=== PATIENT | male | born 1935 | race Caucasian/White ===

== ENCOUNTER 2017-06-14 07:57 | Observation (INO) | payer OTHER ==
[2017-06-14 09:04] LABS: Absolute Lymphocytes (CBC) 2.2 K/uL (0.7-4.9); Absolute Monocytes 1.3 K/uL (0.1-1.3); Absolute Neutrophil 4.4 K/uL (1.8-8.0); Basophils % 0.8 % (0-1.3); Eosinophils % 0.8 % (0-4.4); Hematocrit 40.9 % (39.6-49.0); Lymphocytes % 28.1 % (15.3-44.8); MCH 33.2 pg (27.0-35.0); MCV 102.2 fL (80-100); MPV 9.5 fL (7.6-11.3); Monocytes % 15.7 % (3.3-12.3); Potassium 4.2 mEq/L (3.6-5.0)
[2017-06-14 09:08] LABS: Protime INR 1.06
[2017-06-14 09:10] LABS: Albumin 3.5 g/dL (3.2-5.5); Bilirubin Direct 0.1 mg/dL (0-0.2); Bilirubin Total 0.6 mg/dL (0.3-1.2); Magnesium 1.7 mg/dL (1.8-2.5); Protein, Total 7.3 g/dL (6.0-8.3)
[2017-06-14 09:14] LABS: CKMB Creatine Kinase MB 2.1 ng/ml (0.3-4.0)
--- NOTE | 2017-06-14 09:45 | RAD REPORT ---
EXAM DESCRIPTION: RAD - Chest Single View - 06/14/2017 8:43 am CLINICAL HISTORY: Cough and congestion, recent flu diagnosis COMPARISON: Chest film 2011 TECHNIQUE: AP portable chest image was obtained 0838 hours . FINDINGS: No peripheral mass or consolidation. Perihilar markings are minimally increased over the p rior study. Fullness of the left hilum is diminished slightly from the prior study. Heart and vascula ture are normal. No measurable pleural effusion and no pneumothorax. No gross bony abnormality seen. No acute aortic findings suspected. IMPRESSION: No peripheral mass or consolidation. Slight increase in interstitial markings from comparison. This could be progressive fibrotic change o r a minimal infiltrate.
[2017-06-14] MEDS ORDERED: IPRATROPIUM BROM 0.5MG/2.5ML ONE (10:10)
[2017-06-14] MEDS ORDERED: MAGNESIUM SULFATE 1 gm IVPB 1 GM/100 ML BAG IV ONE (10:10)
[2017-06-14] MEDS ORDERED: ALBUTEROL 2.5 MG/3 ML NEB SOL ONE (10:10)
[2017-06-14] MEDS ORDERED: ASPIRIN 325 MG TAB ONE (11:08)
[2017-06-14] MEDS ORDERED: predniSONE 20 MG TAB ONE (11:08)
[2017-06-14] MEDS ORDERED: IPRATROPIUM BROM 0.5MG/2.5ML NEB PRN (11:12)
[2017-06-14] MEDS ORDERED: ACETAMINOPHEN 500 MG TAB PO PRN (11:12)
[2017-06-14] MEDS ORDERED: ONDANSETRON 4 MG/2 ML VIAL IV PRN (11:12)
[2017-06-14] MEDS ORDERED: ALBUTEROL 2.5 MG/3 ML NEB SOL NEB PRN (11:12)
--- NOTE | 2017-06-14 11:15 | EDPHYS ---
Physician Documentation [facility] Name: Conner Holder Age: 81 yrs Sex: Male : 1935 Arrival Date: 06/14/2017 Time: 08:00 Bed 5 Private MD: Olamide Grossman C ED Physician Kurt Queen HPI: 06/14 11:00 This 81 yrs old Male presents to ER via Ambulatory with complaints of Cough, pm1 Breathing Difficulty. 11:00 The patient or guardian reports cough, difficulty breathing. Onset: The pm1 symptoms/episode began/occurred 2 week(s) ago. Severity of symptoms: in the emergency department the symptoms are actually worse. Modifying factors: The symptoms are alleviated by nothing, the symptoms are aggravated by exertion. Associated signs and symptoms: Pertinent negatives: chest pain, diarrhea, fever, nausea, rhinorrhea, sore throat, vomiting. 11:00 Patient with cough and shortness of breath with exertion for the past 2 weeks. He was pm1 seen by his PCP 1 week ago and prescribed Z-Otoniel for bronchitis. Patient did not improve with the antibiotics, increased shortness of breath with exertion and coughing, so he presented to [facility] and was diagnosed with flu pneumonia. Patient prescribed Cipro, Tamiflu, albuterol, and Tessalon Perles. Patient has taken one pill of Cipro. Has not taken any Tamiflu. Patient with last episode of fever about 1 week ago.. Historical: - Allergies: 08:25 PENICILLINS; ss - PMHx: 08:25 Arthritis; Kidney stones; AAA; ss - PSHx: 08:25 Carpal Tunnel Repair; Eye Surgery (X2); prostate surgery (Dr Chavez) 2011; back ss surgery; knee replacement; - Immunization history:: Adult Immunizations up to date. - Social history:: Smoking status: Patient/guardian denies using tobacco. ROS: 11:00 Constitutional: Negative for fever, chills, and weight loss, Eyes: Negative for injury, pm1 pain, redness, and discharge, ENT: Negative for injury, pain, and discharge, Neck: Negative for injury, pain, and swelling. 11:00 Abdomen/GI: Negative for abdominal pain, nausea, vomiting, diarrhea, and constipation, Back: Negative for injury and pain, : Negative for injury, bleeding, discharge, and swelling, MS/Extremity: Negative for injury and deformity, Skin: Negative for injury, rash, and discoloration, Neuro: Negative for headache, weakness, numbness, tingling, and seizure. 11:00 Cardiovascular: Positive for chest pain, with cough, Negative for edema, palpitations. 11:00 Respiratory: Positive for cough, shortness of breath, on exertion. Sputum cream colored, Negative for wheezing. Exam: 11:00 Constitutional: This is a well developed, well nourished patient who is awake, alert, pm1 and in no acute distress. Head/Face: Normocephalic, atraumatic. Eyes: Pupils equal round and reactive to light, extra-ocular motions intact. Lids and lashes normal. Conjunctiva and sclera are non-icteric and not injected. Cornea within normal limits. Periorbital areas with no swelling, redness, or edema. ENT: Nares patent. No nasal discharge, no septal abnormalities noted. Tympanic membranes are normal and external auditory canals are clear. Oropharynx with no redness, swelling, or masses, exudates, or evidence of obstruction, uvula midline. Mucous membranes moist. Neck: Trachea midline, no thyromegaly or masses palpated, and no cervical lymphadenopathy. Supple, full range of motion without nuchal rigidity, or vertebral point tenderness. No Meningismus. 11:00 Cardiovascular: Regular rate and rhythm with a normal S1 and S2. No gallops, murmurs, or rubs. No pulse deficits. Abdomen/GI: Soft, non-tender, with normal bowel sounds. No distension or tympany. No guarding or rebound. No evidence of tenderness throughout. Back: No spinal tenderness. No costovertebral tenderness. Full range of motion. Skin: Warm, dry with normal turgor. Normal color with no rashes, no lesions, and no evidence of cellulitis. MS/ Extremity: Pulses equal, no cyanosis. Neurovascular intact. Full, normal range of motion. 11:00 Chest/axilla: Inspection: normal, Palpation: is normal, crepitus, is not appreciated, tenderness, is not appreciated. 11:00 Respiratory: the patient does not display signs of respiratory distress, Respirations: normal, Breath sounds: rhonchi, are heard diffusely. 11:00 Neuro: Orientation: is normal, Mentation: is normal, Motor: is normal, moves all fours, Sensation: is normal, no obvious gross deficits. Vital Signs: 08:25 BP 107 / 71; Pulse 97; Resp 20; Temp 98.3(O); Pulse Ox 93% on R/A; Weight 108.86 kg; ss Height 5 ft. 11 in. (180.34 cm); Pain 0/10; 09:59 BP 125 / 84; Pulse 94; Resp 19; Pulse Ox 100% on Nebulizer Mask; la1 10:52 Pulse 79; Resp 19; Pulse Ox 97% on 2 lpm NC; la1 10:53 BP 120 / 63; Pulse 77; Resp 19; Pulse Ox 97% on 2 lpm NC; la1 12:48 BP 120 / 66; Pulse 79; Resp 16; Pulse Ox 97% on 2 lpm NC; la1 08:25 Body Mass Index 33.47 (108.86 kg, 180.34 cm) ss MDM: 08:15 Patient medically screened. pm1 10:58 Data reviewed: vital signs. Data interpreted: Pulse oximetry: on 2L(s) per nasal pm1 canula, is 97 %. Interpretation: acceptable. Counseling: I had a detailed discussion with the patient and/or guardian regarding: the historical points, exam findings, and any diagnostic results supporting the discharge/admit diagnosis, lab results, radiology results, the need for further work-up and treatment in the hospital. 10:58 Physician consultation: Vijaya Prakash MD was contacted at 10:59, regarding admission, pm1 patient's condition, and will see patient in ED. 06/14 08:24 Order name: Basic Metabolic Panel pm1 06/14 08:24 Order name: BNP pm1 06/14 08:24 Order name: CBC with Diff pm1 06/14 08:24 Order name: Ckmb pm1 06/14 08:24 Order name: CPK; Complete Time: 09:41 pm1 06/14 08:24 Order name: LFT's; Complete Time: 09:41 pm1 06/14 08:24 Order name: Magnesium; Complete Time: 09:41 pm06/14 08:24 Order name: PT-INR; Complete Time: 09:41 pm1 06/14 08:24 Order name: Ptt, Activated; Complete Time: 09:41 pm1 06/14 08:24 Order name: Troponin (emerg Dept Use Only); Complete Time: 09:41 pm06/14 08:24 Order name: Flu; Complete Time: 09:41 pm1 06/14 08:24 Order name: Basic Metabolic Panel; Complete Time: 09:41 EDMS 06/14 08:24 Order name: BNP B-Type Natriuretic Peptide; Complete Time: 09:41 EDMS 06/14 08:24 Order name: CBC with Automated Diff; Complete Time: 09:41 EDMS 06/14 08:24 Order name: XRAY Chest (1 view); Complete Time: 09:45 pm06/14 08:24 Order name: CKMB Creatine Kinase MB; Complete Time: 09:41 EDMS 06/14 08:25 Order name: Blood Culture Adult (2) pm06/14 08:25 Order name: Procalcitonin; Complete Time: 10:43 pm06/14 08:25 Order name: Lactate; Complete Time: 09:41 pm06/14 11:15 Order name: Basic Metabolic Panel EDMS 06/14 11:15 Order name: Basic Metabolic Panel EDMS 06/14 11:15 Order name: Basic Metabolic Panel EDMS 06/14 11:15 Order name: Basic Metabolic Panel EDMS 06/14 11:15 Order name: CBC with Automated Diff EDMS 06/14 11:15 Order name: CBC with Automated Diff EDMS 06/14 11:15 Order name: CBC with Automated Diff EDMS 06/14 11:15 Order name: CBC with Automated Diff EDMS 06/14 08:24 Order name: EKG; Complete Time: 08:25 pm06/14 08:24 Order name: Cardiac monitoring; Complete Time: 08:35 pm06/14 08:24 Order name: EKG - Nurse/Tech; Complete Time: 08:35 pm06/14 08:24 Order name: IV Saline Lock; Complete Time: 08:36 pm06/14 08:24 Order name: Labs collected and sent; Complete Time: 08:36 pm06/14 08:24 Order name: O2 Per Protocol; Complete Time: 08:36 pm06/14 08:24 Order name: O2 Sat Monitoring; Complete Time: 08:36 pm06/14 11:15 Order name: CONS Pharmacy Consult EDMS 06/14 11:15 Order name: Heart Healthy EDMS Administered Medications: 09:59 Drug: Magnesium Sulfate 1 grams Route: IVPB; Infused Over: 1 hrs; Site: right la1 antecubital; 11:02 Follow up: IV Status: Completed infusion la1 :59 Drug: Albuterol 2.5 mg Route: Inhalation; la1 11: Follow up: Response: No adverse reaction la1 09:59 Drug: AtroVENT Aerosol 0.5 mg Route: Inhalation; la1 11: Follow up: Response: No adverse reaction la1 10:52 Drug: Aspirin 325 mg Route: PO; la1 11:05 Follow up: Response: No adverse reaction la1 10:52 Drug: predniSONE 60 mg Route: PO; la1 11:05 Follow up: Response: No adverse reaction la1 11:22 Drug: LevaQUIN 750 mg Route: PO; la1 13:11 Follow up: Response: No adverse reaction la1 11:22 Drug: Rocephin 1 grams Route: IV; Rate: calculated rate; Site: right antecubital; la1 : Follow up: IV Status: Completed infusion la1 Disposition: 15:25 Co-signature as Attending Physician, Kurt Queen MD I agree with the assessment and kdr plan of care. Disposition: 06/14/17 11:14 Hospitalization ordered by Vijaya Prakash for Observation. Preliminary diagnosis are Chronic obstructive pulmonary disease with (acute) exacerbation, Influenza due to certain identified influenza viruses - Influenza B. - Bed requested for Telemetry/MedSurg (observation). - Status is Observation. la1 - Condition is Stable. - Problem is new. - Symptoms have improved. UTI on Admission? No Signatures: Dispatcher [employer] [facility] Quynh Ocampo RN RN Kurt Queen MD MD [facility] Marissa Nickerson RN RN Praveen Condon RN RN la1 Valentino Francisco, DAT RISK ASSESSOR pm1 Corrections: (The following items were deleted from the chart) 13:11 08:24 Urine Dipstick-Ancillary ordered. pm1 la1
--- NOTE | 2017-06-14 11:15 | ER ---
Nurse's Notes [facility] Name: Conner Holder Age: 81 yrs Sex: Male : 1935 Arrival Date: 06/14/2017 Time: 08:00 Bed 5 Private MD: Olamide Grossman C Diagnosis: Influenza due to certain identified influenza viruses-Influenza B;Chronic obstructive pulmonary disease with (acute) exacerbation Presentation: 06/14 08:03 Presenting complaint: Patient states: seen at [facility] urgent care yesterday and ss diagnosed with flu and pneumonia. Pt reports that cough and shortness of breath have been going on for approx 5 days, but is worse today compared to yesterday despite new prescriptions. Transition of care: patient was not received from another setting of care. Onset of symptoms was June 10, 2017. Care prior to arrival: None. 08:03 Method Of Arrival: Ambulatory ss 08:03 Acuity: ROHIT 2 ss Triage Assessment: 11:22 General: Appears in no apparent distress. Behavior is calm, cooperative. Respiratory: la1 Onset: The symptoms/episode began/occurred. Respiratory: Reports shortness of breath cough that is the patient has mild shortness of breath. Historical: - Allergies: 08:25 PENICILLINS; ss - PMHx: 08:25 Arthritis; Kidney stones; AAA; ss - PSHx: 08:25 Carpal Tunnel Repair; Eye Surgery (X2); prostate surgery (Dr Chavez) 2011; back ss surgery; knee replacement; - Immunization history:: Adult Immunizations up to date. - Social history:: Smoking status: Patient/guardian denies using tobacco. Screenin:36 Abuse screen: Denies threats or abuse. Denies injuries from another. Nutritional hb screening: No deficits noted. Tuberculosis screening: No symptoms or risk factors identified. Fall Risk None identified. Assessment: 08:37 General: Appears in no apparent distress. Behavior is calm, cooperative. Pain:. Pain: hb Denies pain. Neuro: Level of Consciousness is awake, alert, obeys commands, Oriented to person, place, time, situation. Cardiovascular: Capillary refill < 3 seconds Patient's skin is warm and dry. Rhythm is regular. Respiratory: Airway is patent Trachea midline Respiratory effort is even, unlabored, Respiratory pattern is regular, symmetrical, Breath sounds with rhonchi. GI: No signs and/or symptoms were reported involving the gastrointestinal system. : No signs and/or symptoms were reported regarding the genitourinary system. EENT: No signs and/or symptoms were reported regarding the EENT system. Derm: No signs and/or symptoms reported regarding the dermatologic system. Skin is intact, is healthy with good turgor, Skin is pink, warm \T\ dry. Musculoskeletal: No signs and/or symptoms reported regarding the musculoskeletal system. 09:59 Reassessment: Patient appears in no apparent distress at this time. No changes from la1 previously documented assessment. Patient is alert, oriented x 3, equal unlabored respirations, skin warm/dry/pink. 11:02 Reassessment: Patient appears in no apparent distress at this time. No changes from la1 previously documented assessment. Patient and/or family updated on plan of care and expected duration. Pain level reassessed. Patient is alert, oriented x 3, equal unlabored respirations, skin warm/dry/pink. 12:49 Reassessment: Patient appears in no apparent distress at this time. No changes from la1 previously documented assessment. Patient and/or family updated on plan of care and expected duration. Pain level reassessed. Patient is alert, oriented x 3, equal unlabored respirations, skin warm/dry/pink. Vital Signs: 08:25 BP 107 / 71; Pulse 97; Resp 20; Temp 98.3(O); Pulse Ox 93% on R/A; Weight 108.86 kg; Height 5 ft. 11 in. (180.34 cm); Pain 0/10; 09:59 BP 125 / 84; Pulse 94; Resp 19; Pulse Ox 100% on Nebulizer Mask; la1 10:52 Pulse 79; Resp 19; Pulse Ox 97% on 2 lpm NC; la1 10:53 BP 120 / 63; Pulse 77; Resp 19; Pulse Ox 97% on 2 lpm NC; la1 12:48 BP 120 / 66; Pulse 79; Resp 16; Pulse Ox 97% on 2 lpm NC; la1 08:25 Body Mass Index 33.47 (108.86 kg, 180.34 cm) ED Course: 08:00 Patient arrived in ED. rg4 08:00 Olamide Grossman MD is Private Physician. rg4 08:06 Valentino Francisco [facility] is [facility]. pm1 08:06 Kurt Queen MD is Attending Physician. pm1 08:21 Triage completed. ss 08:25 Arm band placed on right wrist. ss 08:30 Inserted saline lock: 20 gauge in right antecubital area, using aseptic technique. hb Blood collected. 08:36 Patient has correct armband on for positive identification. Bed in low position. Call hb light in reach. Side rails up X 1. 08:40 X-ray completed. Portable x-ray completed in exam room. Patient tolerated procedure ag1 well. 08:41 XRAY Chest (1 view) In Process Unspecified. EDMS 08:49 Michelle Tate, RN is Primary Nurse. ph 09:08 EKG done, by computer support technician. reviewed by Valentino Francisco NP. at1 11:13 Vijaya Prakash MD is Hospitalizing Provider. pm1 11:22 No provider procedures requiring assistance completed. Patient admitted, IV remains in la1 place. Administered Medications: 09:59 Drug: Magnesium Sulfate 1 grams Route: IVPB; Infused Over: 1 hrs; Site: right la1 antecubital; 11:02 Follow up: IV Status: Completed infusion la1 09:59 Drug: Albuterol 2.5 mg Route: Inhalation; la1 11:02 Follow up: Response: No adverse reaction la1 09:59 Drug: AtroVENT Aerosol 0.5 mg Route: Inhalation; la1 11:02 Follow up: Response: No adverse reaction la1 10:52 Drug: Aspirin 325 mg Route: PO; la1 11:05 Follow up: Response: No adverse reaction la1 10:52 Drug: predniSONE 60 mg Route: PO; la1 11:05 Follow up: Response: No adverse reaction la1 11:22 Drug: LevaQUIN 750 mg Route: PO; la1 13:11 Follow up: Response: No adverse reaction la1 11:22 Drug: Rocephin 1 grams Route: IV; Rate: calculated rate; Site: right antecubital; la1 11:22 Follow up: IV Status: Completed infusion la1 Outcome: 11:14 Decision to Hospitalize by Provider. pm1 13:43 Admitted to Med/surg accompanied by nurse, via wheelchair, room 231, with chart. la1 13:43 Condition: stable 13:43 Instructed on the need for admit. 13:43 Patient left the ED. la1 Signatures: Dispatcher [employer] EDNM Marissa Nickerson, RN RN ss Lorri garcia, marriage counselor minister EKG Tat1 Praveen Condon RN RN la1 Michelle Taet RN RN ph Gallaway, Ashley ag1 Valentino Francisco, UPPER LINING CEMENTER UPPER LINING CEMENTER pm1 Susana Llanes RN RN hb Garcia, Rubi rg4 Corrections: (The following items were deleted from the chart) 13:11 12:48 BP 120 / 66; Pulse 79bpm; Resp 16bpm; Pulse Ox 100% RA; la1 la1
[2017-06-14] MEDS ORDERED: levoFLOXacin 750 MG TAB ONE (11:33)
[2017-06-14] MEDS ORDERED: CEFTRIAXONE/SWI 1gm 1 GM/10 ML SYR ONE (11:34)
[2017-06-14 14:09] VITALS: BMI 33.5
[2017-06-14] MEDS: OSELTAMIVIR 75 MG CAP PO SCH ×2 (15:04→21:15)
[2017-06-14] MEDS: ENOXAPARIN 30 MG/0.3 ML SQ SCH ×2 (17:00→18:36)
--- NOTE | 2017-06-14 18:27 | RAD REPORT ---
EXAM DESCRIPTION: US - Renal Ultrasound-Complete - 06/14/2017 5:55 pm CLINICAL HISTORY: Acute kidney injury. COMPARISON: None. FINDINGS: Both kidneys are normal in size, shape and echotexture. The right kidney measures 11.5 x 5.5 x 5.2 cm. No hydronephrosis, focal mass or perinephric fluid. Sm all benign cortical renal cysts noted. The left kidney measures 10.2 x 5.2 x 4.8 cm. No hydronephrosis, focal mass or perinephric fluid. IMPRESSION: Unremarkable renal sonogram.
[2017-06-14] MEDS: NA CHLORIDE 0.9% 1,000 ML IV SCH (18:35)
[2017-06-14] MEDS: METHYLPREDNISOLONE 40 MG INJ IV SCH (18:36)
[2017-06-14] MEDS ORDERED: ATORVASTATIN 20 MG TAB PO SCH (21:00)
[2017-06-14] MEDS ORDERED: HOME MED 1 EA UNK (Bimatoprost [Lumigan Opthalmic Drops*] 1 DROP) OU SCH (21:00)
[2017-06-14] MEDS ORDERED: FLUOROMETHOLONE 0.1% OP SCH (21:00)
--- NOTE | 2017-06-14 22:15 | CON ---
Date of Consultation: 06/14/2017 Reason For Consultation: Elevated BUN and creatinine, fluid management. History Of Present Illness: This is a pleasant 81-year-old gentleman with significant past medical h istory of hypertension, nephrolithiasis, status post multiple episode, follow up with oraila Trent t episode back in 2016. Rheumatoid arthritis, on Humira. The patient was in his regular state of he alth. Apparently, started developing some shortness of breath, cough. For that reason, came to his primary care. Giving treatment did not feel improvement. For that reason, reported to the hospital. In the hospital, found hypoxemic. For that reason, admitted to the hospital for pneumonia. The pa cliff denied taking. Primary workup showed elevated BUN and creatinine. For that reason, we have be en consulted. Reviewing the record early this year back in March, creatinine 1.2. At that time, G FR was 55. The patient denied any IV contrast. No recent nonsteroidal intake. No symptoms. No hematuria. No recent episode of kidney stone. Reviewing the record of the patient as home medication, the patient taking Celebrex and Humira. Past Medical History: Include; 1.Hypertension. 2.Hyperlipidemia. 3.Kidney stone. 4.Rheumatoid arthritis, on Humira. Allergies: TO PENICILLIN. Surgical History: Non contribute. Family History: Positive for hypertension. Social History: Ex-smoker. Denies drinking. Denies drug abuse. Review of Systems: Head and Neck: No red eye. No ear pain. GI: Decreased intake. : No polyuria. No dysuria. No hematuria. ADVERTISING COPY WRITER: Not applicable. Respiratory: Has shortness of breath. Cardiovascular: No leg swelling. Endocrine: No polydipsia. Skin: No rash. Neuro: Generalized weakness. Musculoskeletal: Body ache. Physical Examination: Vital Signs: When I saw the patient, blood pressure of 120/66, pulse of 79, afebrile. Chest: Clear to auscultation. Heart: S1, S2. Regular. Abdomen: Soft, nontender. Extremities: No edema. Neurological: Alert and oriented x3. No focal. Medications: Current medications in the hospital include breathing treatment. Levaquin and Solu-Med rol. Home medications include Requip, multivitamin, Celebrex, atorvastatin, aspirin, and Humira. Laboratory Data: Back in March 2017; potassium 5.1, creatinine 1.2, GFR of 55. Latest lab data; s odium 133, potassium 4.2, bicarb 23, BUN 28, creatinine 1.6, calcium of 9. WBC 8, H and H 13.3/40.9, platelets 196. Baseline H and H 12.4/38.2. Chest x-ray, interstitial congestion/interstitial infiltration. Assessment And Plan: 1.Acute kidney injury, multifactorial, prerenal/nonsteroidal use. Celebrex, doubt to be secondary t o activity of kidney stone as the urine, no hematuria, but given his history we need to be ruled out. I am going to start the patient on IV hydration and we will monitor the patient. 2.We will hold on any nonsteroidal. Discontinue Celebrex and we will monitor. 3.Hypertension, controlled, optimal. Continue holding blood pressure medication. 4.Hyponatremia, depletional. Start IV hydration. 5.Flu. Continue current antibiotic. Dose is appropriate. 6.Kidney stone. Doubt to be activity. We will get ultrasound. We will follow up. Case discussed with the patient, verbalized understanding. Discussed with the staff. Thank you Dr. Prakash for allowing us to participate in the care of your patient. LEON Voice ID: [id number] Report ID: [id number]
--- NOTE | 2017-06-14 22:45 | HP ---
Date of Admission: 06/14/2017 Chief Complaint: Shortness of breath. Generalized malaise. Code Status: DNR. Primary Care Physician: Marty Grossman MD History Of Present Illness: This patient is an 81-year-old male with past medical history of COPD not oxygen dependent, history of abdominal aortic aneurysm, BPH, hyperlipidemia, glaucoma, who was in his usual state of health until one week prior to admission when the patient started having some generalized malaise, back ache, shoulder ache, and myalgias along with some shortness of breath. The patient does report some cough with scant sputum production. The patient went to his primary care physician, who prescribed azithromycin. The patient started the antibiotic course, however, was not feeling better and day prior to admission went to [facility] and was diagnosed with flu and was also given Cipro. The patient had not started his Tamiflu but had taken a few doses of the Cipro. The patient continued to have worsening symptoms of shortness of breath. He does report some subjective fever and chills. No nausea, vomiting, or chest pain. Does report some dry cough with scant sputum production. The patient's symptoms were constant, moderate, progressively worsening. No alleviating factors. The patient therefore came into the ER for further evaluation. Upon arrival to the ER, his vital signs were stable. He was afebrile, saturating 93% on room air. His workup showed flu B positive. Creatinine 1.64 with an essentially normal baseline, slightly low magnesium. Troponin was mildly elevated at 0.05. His chest x-ray showed some increased interstitial marking, progressive fibrotic change, with minimal infiltrate. The patient was given steroids, Rocephin and Levaquin breathing treatments, and referred for admission. When the patient was seen in the ER, he was awake, alert, oriented x3, in some mild distress. Past Medical History: Benign prostatic hyperplasia, hyperlipidemia, glaucoma, COPD, history of AAA, history of kidney stones, osteoarthritis. Past Surgical History: Carpal tunnel repair, eye surgery x2, prostate surgery by Dr. Hernandez in 2011, back surgery, knee replacement. Social History: The patient is . Denies any illicit drug use, alcohol use, or current tobacco use. The patient does have a 40 pack-year smoking history. Allergies: TO PENICILLIN. Medications: Reviewed. Review of Systems: 11-point system reviewed, negative except as per HPI. Family History: Noncontributory. Physical Examination: Vital Signs: Temperature 98.3, heart rate 97, blood pressure 107/71, respirations 20, O2 saturation 93% on room air. General: Awake, alert, oriented x3. Elderly male, somewhat ill-appearing. HEENT: Normocephalic, atraumatic. PERRLA. EOMI. Moist mucous membranes. Oropharynx is clear. The patient wears top dentures. Conjunctiva anicteric. Neck: Supple. No JVD. Trachea midline. CV: S1, S2. No murmurs. Peripheral pulses are present bilaterally. Respiratory: Diminished breath sounds. Some mild wheezing. No stridor or use of accessory muscles. Gastrointestinal: Abdomen is soft, nontender, nondistended. Positive bowel sounds. No guarding or rigidity. No palpable masses. Extremities: No clubbing, cyanosis, or edema. No calf tenderness. Neurologic: Cranial nerves 2 through 12 intact grossly. Strength is 5/5 bilateral upper and lower extremities. Sensation intact to light touch. Speech is normal. Skin: No rashes. Normal skin turgor. Psych: Mood is okay. Affect is full. Insight and judgment are good. Laboratory Data: Sodium 133, potassium 4.2, chloride 103, CO2 23. BUN 28, creatinine 1.64, glucose 124. Lactic acid 19.7, calcium 9, magnesium 1.7. CK 385, troponin 0.05. BNP 48. Procalcitonin 0.05. WBC 8, H and H 13.3 and 40.9 , platelets 196. INR 1.06. Diagnostic Data: Chest x-ray shows no peripheral mass or consolidations. Slight increase in interstitial markings from comparison. This could be progressive fibrotic change or infiltrate. Assessment And Plan: An 81-year-old male with; 1. Acute chronic obstructive pulmonary disease exacerbation. We will start on DuoNeb and IV steroids. We will provide supplemental oxygen as needed. 2. Acute bronchitis, has been treated with medications with azithromycin and Cipro. We will continue IV antibiotics. 3. Influenza B. we will continue Tamiflu, although the patient is out of bed to the window, may be of some benefit. 4. Hypomagnesemia. Replace and monitor. 5. Acute kidney injury. We will monitor creatinine and start on IV fluids. 6. Mild rhabdomyolysis. Elevated CK level. Continue IV fluids. 7. Mildly elevated troponin, 0.05. No acute chest pain, likely from demand mismatch. 8. History of abdominal aortic aneurysm. 9. Benign prostatic hyperplasia. We will resume home medications. 10. Hyperlipidemia, on statin. 11. Glaucoma. Continue eyedrops. 12. History of psoriatic arthritis, on immune modulating drugs. We will hold at this time due to acute infection. 13. Gastrointestinal and deep venous thrombosis prophylaxis with PPI and Lovenox. Plan: Admit the patient to Med-Surg, place as observation. No medical power of trade mark attorney or living will /KRISTA Voice ID: [id number] MTDD
[2017-06-15] MEDS: METHYLPREDNISOLONE 40 MG INJ IV SCH ×2 (01:05→08:48)
[2017-06-15 04:57] LABS: Absolute Lymphocytes (CBC) 0.7 K/uL (0.7-4.9); Absolute Monocytes 0.3 K/uL (0.1-1.3); Basophils % 0.3 % (0-1.3); Hematocrit 37.3 % (39.6-49.0); Lymphocytes % 22.7 % (15.3-44.8); MCH 33.8 pg (27.0-35.0); MCV 101.2 fL (80-100); MPV 8.9 fL (7.6-11.3); Monocytes % 9.9 % (3.3-12.3); RBC Red Blood Cell Count 3.68 M/uL (4.33-5.43)
[2017-06-15 05:11] LABS: Phosphorus 2.5 mg/dL (2.5-4.3); Potassium 4.8 mEq/L (3.6-5.0)
[2017-06-15] MEDS: NA CHLORIDE 0.9% 1,000 ML IV SCH (05:54)
[2017-06-15] MEDS ORDERED: PANTOPRAZOLE 40MG TABLET PO SCH (06:30)
[2017-06-15] MEDS: OSELTAMIVIR 75 MG CAP PO SCH (08:48)
[2017-06-15] MEDS ORDERED: ASPIRIN 81 MG CHEWABLE TABLET PO SCH (09:00)
[2017-06-15] MEDS ORDERED: HOME MED 1 EA UNK (Esomeprazole Mag Trihydrate [Nexium] 40 MG) PO SCH (09:00)
[2017-06-15] MEDS ORDERED: Levofloxacin500mg IV 500 MG/100 ML BAG IV SCH (09:00)
[2017-06-15] MEDS ORDERED: BENZONATATE 100 MG CAP PO PRN (12:31)
[2017-06-15 15:16] VITALS: O2SAT 95
--- NOTE | 2017-06-15 16:31 | PN ---
Date of Progress Note: 06/14/2017 Subjective: Patient is seen and examined. Chart reviewed and case discussed with RN and Dr. Greer musa. The patient is feeling better, still having some significant amount of cough with scant sputum pr oduction. Still feels weak. Review of Systems: Negative except as above. Medications: Reviewed. Physical Examination: Vital Signs: Temperature 97.4, heart rate 62, blood pressure 116/58, respirations 16, O2 93% on room air. General: Awake, alert, oriented x3. Elderly male, somewhat ill-appearing, obese, BMI 33.5. CV: S1, S2. No murmurs. Regular rate and rhythm. Peripheral pulses present bilaterally. Respiratory: Clear to auscultation bilaterally. No wheezing. No stridor. No use of accessory musc les. Gastrointestinal: Abdomen is soft, nontender, nondistended. Positive bowel sounds. Extremities: No clubbing, cyanosis, or edema. Neurologic: Nonfocal. Laboratory Data: Sodium 136, potassium 4.8, chloride 103, CO2 22, BUN 31, creatinine 1.18, glucose 1 64, calcium 9.1, phosphorus 2.5. WBC 3, H and H 12.4, 37.3, platelets 145. Blood cultures, no growt h to date. Assessment And Plan: An 81-year-old male with: 1.Acute chronic obstructive pulmonary disease exacerbation. Continue DuoNebs. We will wean steroid s. Supplemental oxygen as needed. 2.Acute bronchitis. Continue IV antibiotics. 3.Influenza B. Continue Tamiflu. 4.Hypomagnesemia, replace and monitor. 5.Acute kidney injury, resolved. Renal ultrasound negative. Appreciate Dr. Ramos's input. 6.Mild rhabdomyolysis. We will repeat CK level. 7.Mildly elevated troponin level 0.05. No chest pain. 8.History of abdominal aortic aneurysm. 9.Benign prostatic hypertrophy, stable. We will continue home medications. 10.Hyperlipidemia. 11.Statin. 12.Glaucoma. Continue eyedrops. 13.History of cirrhotic arthritis. We will hold immune modulating drugs due to acute infection. 14.Gastrointestinal and deep venous thrombosis prophylaxis with PPI and Lovenox. Plan: Physical therapy consultation. Ambulate. Transfer care back to Dr. Grossman in a.m. Likely disc harge in the next 24 hours if continues to improve. Wean off oxygen. SA/MODL Voice ID: [id number] Report ID: [id number]
[2017-06-15] MEDS: ENOXAPARIN 30 MG/0.3 ML SQ SCH (17:00)
[2017-06-15 18:47] VITALS: BP 131/60; TEMP 97.7
[2017-06-15] MEDS ORDERED: METHYLPREDNISOLONE 40 MG INJ IV SCH (21:00)
--- NOTE | 2017-06-16 01:46 | PN ---
Date of Progress Note: 06/15/2017 Subjective: The patient is doing better. No nausea. No vomiting. No abdominal pain. Physical Examination: Vital Signs: Blood pressure of 131/60, pulse of 69. Chest: Clear to auscultation. Heart: S1, S2. Regular. Abdomen: Soft. Nontender. Extremities: No edema. Laboratory Data: WBC 3, H and H 12.4/37.3, platelet 145. Sodium 136, potassium 4.8, bicarb 22, BUN 31, creatinine 1.1. Calcium 9.1 phosphorus 2.5. Renal ultrasound showing Med ication reviewed PEÑA 2nd to Pre-renal recover resolved Nephrolithiais repeated US neg no activity we reassure the pt will monitor Pneumonia / Flu : f/u with Primary MA/MODL Voice ID: [id number] Report ID: [id number] MTDD
--- NOTE | 2017-06-16 12:56 | EKG ---
Test Date: 2017-06-14 Test Time: 08:34:50 Instructor Nurse: TARYN MEASUREMENT RESULTS: Intervals: Rate: 82 MO: 210 QRSD: 86 QT: 358 QTc: 418 [place]: P: 57 MO: 210 QRS: 61 T: 67 INTERPRETIVE STATEMENTS: Sinus rhythm with 1st degree AV block Otherwise normal ECG Compared to ECG 07/14/2014 13:49:10 Sinus bradycardia no longer present Electronically Signed On 06-16-17 12:55:00 CDT by Daquan Melgar
--- NOTE | 2017-06-16 22:32 | DS ---
Date of Discharge: 06/15/2017 Consultants: Katie Ramos M.D., with Nephrology. Admitting Diagnoses: 1.Acute chronic obstructive pulmonary disease exacerbation. 2.Acute bronchitis. 3.Influenza B. 4.Hypomagnesemia. 5.Acute kidney injury. 6.Mild rhabdomyolysis. 7.Mildly elevated troponin. 8.History of abdominal aortic aneurysm. 9.Benign prostatic hypertrophy. 10.Hyperlipidemia, mixed. 11.Glaucoma. 12.History of psoriatic arthritis, on immune modulating drugs. Discharge Diagnoses: 1.Acute chronic obstructive pulmonary disease exacerbation, resolved. 2.Acute bronchitis. 3.Influenza B. 4.Hypomagnesemia. 5.Acute kidney injury, resolved, secondary to prerenal azotemia. 6.Mild rhabdomyolysis. 7.Mild elevated troponin level. No chest pain. 8.History of abdominal aortic aneurysm. 9.Mixed hyperlipidemia. 10.Benign prostatic hypertrophy. 11.Glaucoma. 12.History of psoriatic arthritis. Hospital Course: The patient is an 81-year-old male, Dr. Grossman's patient, who was admitted under hosp italist service while he was out of town, who came in due to some shortness of breath and generalized malaise. The patient had been diagnosed with flu and bronchitis as an outpatient and had been takin g a few doses of Cipro. The patient was started on IV antibiotics and IV fluids. Tamiflu was contin ued. The patient did have some mild electrolyte abnormalities, which were corrected. He also had so me elevated creatinine level, which improved with IV fluid hydration. He also had some mild rhabdomy olysis with CK level of 385. The patient felt better after treatment. His blood cultures remained n egative to date. One bottle did show Gram-positive cocci, which was Staph coagulase negative, likely contaminant. The patient had renal ultrasound done and was seen by Nephrology. Sonogram was unrema rkable. The patient was feeling better. His creatinine had normalized. He was no longer feeling we ak. He was able to ambulate without getting dyspneic or getting weak. The patient was then cleared for discharge and was sent home in a fair condition. Activity: Fall precautions. No strenuous activity. Diet: Heart healthy. Medications: As per medication reconciliation list. Followup: Follow up with primary care physician, Dr. Grossman, in 2-3 days. Return to ER for worsening condition. Discharge Physical Examination: Please see progress note dictated on day of discharge for physical e xam findings. SA/MODL Voice ID: [id number] Report ID: [id number]
== END 2017-06-15 18:24 | disposition home or self-care (01) ==
LOC: ER 07:57 → ERHOLD 11:14 → 4TH 12:44 → ERHOLD 12:44 → 2ND 13:12
PROVIDERS: ADMIT Family Medicine; ATTEND Family Medicine
DX: H40.9 Unspecified glaucoma; M62.82 Rhabdomyolysis; Z87.891 Personal history of nicotine dependence; Z96.659 Presence of unspecified artificial knee joint; N17.9 Acute kidney failure, unspecified; E78.2 Mixed hyperlipidemia; N40.0 Benign prostatic hyperplasia without lower urinary tract symptoms; Z88.0 Allergy status to penicillin; L40.50 Arthropathic psoriasis, unspecified; R79.89 Other specified abnormal findings of blood chemistry; J20.9 Acute bronchitis, unspecified; J44.1 Chronic obstructive pulmonary disease with (acute) exacerbation; E83.42 Hypomagnesemia; J11.1 Influenza due to unidentified influenza virus with other respiratory manifestations; J44.0 Chronic obstructive pulmonary disease with (acute) lower respiratory infection
CPT/HCPCS: 36415; 71045; 76770; 80048; 80069; 80076; 82550; 82553; 83605 ×2; 83735; 83880; 84145; 84484; 85025 ×2; 85610; 85730; 87040 ×2; 87205; 87804 ×2; 93005; 94640; 96365; 96375; 99285; G0378 ×2; J0696; J2920 ×3; J3475; J7030 ×2; J1650; J7512

== ENCOUNTER 2025-01-03 14:08 | Emergency (ER) | payer OTHER ==
--- NOTE | 2025-01-03 16:37 | RAD REPORT ---
EXAMINATION: Hip Left 2 View CLINICAL INDICATION: Male, 89 years old. [facility] MAIN PAIN Bed Name: 4 TECHNIQUE: 2 view radiograph of the left hip were obtained. COMPARISON: No prior exam. FINDINGS: No evidence of fracture or dislocation. Normal alignment. No evidence of arthropathy or oth er focal bone lesion. Soft tissues are unremarkable. IMPRESSION: No acute or significant abnormalities.
--- NOTE | 2025-01-03 16:46 | ER ---
Nurse's Notes [facility] Name: Conner Holder Age: 89 yrs Sex: Male : 1935 Arrival Date: 01/03/2025 Time: 14:08 Bed 10 Private MD: Diagnosis: Contusion of left hip Presentation: 01/03 14:18 Chief complaint: Patient states: tripped and fell on Saturday. c/o left hip and thigh me1 pain that is 4/10 at rest, 10/10 with movement or weight bearing. Coronavirus screen: At this time, the client does not indicate any symptoms associated with coronavirus-19. Ebola Screen: No symptoms or risks identified at this time. Initial Sepsis Screen: Does the patient meet any 2 criteria? No. Patient's initial sepsis screen is negative. Does the patient have a suspected source of infection? No. Patient's initial sepsis screen is negative. Risk Assessment: Do you want to hurt yourself or someone else? Patient reports no desire to harm self or others. Onset of symptoms was December 30, 2024. 14:18 Method Of Arrival: Wheelchair me1 14:18 Acuity: ROHIT 4 me1 Historical: - Allergies: 14:20 PENICILLINS; me1 - PMHx: 14:20 AAA; Arthritis; enlarged prostate; Kidney stones; me1 - PSHx: 14:20 abdominal aneurysm repair; knee replacements bilateral; prostate surgery (Unknown); me1 - Immunization history:: Adult Immunizations up to date. - Infectious Disease History:: Denies. - Social history:: Smoking status: Patient/guardian denies using tobacco, but has a distant history of tobacco abuse. Screenin:25 [facility] ED Fall Risk Assessment (Adult) History of falling in the last 3 months, rg5 including since admission Yes- single mechanical fall (1 pt) Confusion or Disorientation No (0 pts) Intoxicated or Sedated No (0 pts) Impaired Gait Yes (1 pt) Mobility Assist Device Used Yes (1 pt) Altered Elimination No (0 pt) Score/Fall Risk Level 3 or more points = High Risk Oriented to surroundings, Maintained a safe environment, Hourly rounding (assess needs \T\ fall precautionary measures) done. Abuse screen: Denies threats or abuse. Nutritional screening: No deficits noted. Tuberculosis screening: No symptoms or risk factors identified. Assessment: 16:25 General: Appears in no apparent distress. uncomfortable, Behavior is calm, cooperative, rg5 appropriate for age. Pain: Complains of pain in left low back Quality of pain is described as dull, Pain began 2-3 days ago. Pain: Pain radiates to left leg. Neuro: Level of Consciousness is awake, alert, obeys commands, Oriented to person, place, time, situation. Respiratory: Airway is patent Respiratory effort is even, unlabored. GI: Abdomen is round non-distended. : No signs and/or symptoms were reported regarding the genitourinary system. EENT: No signs and/or symptoms were reported regarding the EENT system. Derm: Skin is intact, Skin is dry, Skin is normal, Skin temperature is warm. Musculoskeletal: Circulation, motion, and sensation intact. Range of motion: intact in all extremities. Vital Signs: 14:18 BP 106 / 62; Pulse 81; Resp 18; Temp 98.3; Pulse Ox 99% ; Weight 98.88 kg; Height 5 ft. me1 11 in. ; Pain 4/10; 16:25 BP 104 / 53; Pulse 65; Resp 18; Pulse Ox 99% ; rg5 16:55 BP 129 / 65; Pulse 68; Resp 18; Pulse Ox 99% ; rg5 14:18 Body Mass Index 30.40 (98.88 kg, 180.34 cm) me1 14:18 Pain Scale: Adult me1 ED Course: 14:12 Patient arrived in ED. cj3 14:16 Rachana Lomas PA-C is PHCP. sb4 14:16 Shad Tavera MD is Attending Physician. sb4 14:20 Triage completed. me1 14:20 Arm band placed on Patient placed in waiting room. me1 15:47 Grupo Gibbs, FRED is Primary Nurse. rg5 16:16 Hip Left 2 View XRAY In Process Unspecified. EDMS 16:25 Patient has correct armband on for positive identification. Bed in low position. Call rg5 light in reach. Side rails up X 1. Placed in gown. Client placed on continuous cardiac and pulse oximetry monitoring. NIBP monitoring applied. railroad hand on. Pulse ox on. NIBP on. Door closed. Noise minimized. 16:25 No provider procedures requiring assistance completed. rg5 16:56 Patient did not have IV access during this emergency room visit. rg5 Administered Medications: No medications were administered Medication: 16:25 VIS not applicable for this client. rg5 Outcome: 16:46 Discharge ordered by . sb4 16:56 Discharged to home via wheelchair, rg5 16:56 Condition: stable 16:56 Discharge instructions given to patient, Instructed on discharge instructions, follow up and referral plans. Demonstrated understanding of instructions, follow-up care, Prescriptions given X 2, 17:03 Patient left the ED. rg5 Signatures: Dispatcher [employer] Rachana Turner, PA-C PA-C sb4 Ainta Silva RN RN me1 Grupo iGbbs RN RN rg5 Yennifer Bustamante cj3
--- NOTE | 2025-01-03 16:46 | EDPHYS ---
Physician Documentation [facility] Name: Conner Holder Age: 89 yrs Sex: Male : 1935 Arrival Date: 01/03/2025 Time: 14:08 Bed 10 Private MD: ED Physician Shad Tavera HPI: 01/03 17:30 This 89 yrs old Male presents to ER via Wheelchair with complaints of Hip Pain - LT. sb4 17:32 Patient states that about 4 days ago, he was walking in a dark room and tripped over an sb4 object. He states that he was able to slow his fall but did end up landing on his left hip/lateral left thigh. He complains of pain in the region, worse with ambulation. States the pain resolves with rest. No other injuries, no deformities. He states he feels like the area is swollen. Historical: - Allergies: 14:20 PENICILLINS; me1 - PMHx: 14:20 AAA; Arthritis; enlarged prostate; Kidney stones; me1 - PSHx: 14:20 abdominal aneurysm repair; knee replacements bilateral; prostate surgery (Unknown); me1 - Immunization history:: Adult Immunizations up to date. - Infectious Disease History:: Denies. - Social history:: Smoking status: Patient/guardian denies using tobacco, but has a distant history of tobacco abuse. ROS: 17:32 Constitutional: Negative for fever, chills, and weight loss, sb4 17:32 MS/extremity: Positive for injury or acute deformity, pain, swelling, tenderness, of the left hip, 17:32 All other systems are negative, Exam: 17:32 Constitutional: This is a well developed, well nourished patient who is awake, alert, sb4 and in no acute distress. Head/Face: Normocephalic, atraumatic. Eyes: Extra-ocular motions intact. Periorbital areas with no swelling, redness, or edema. ENT: Mucous membranes moist. Respiratory: No increased work of breathing, no retractions or nasal flaring. Skin: Warm, dry with normal turgor. Normal color with no rashes, no lesions, and no evidence of cellulitis. MS/ Extremity: Pulses equal, no cyanosis. Neurovascular intact. Full, normal range of motion. 17:32 Musculoskeletal/extremity: ROM: limited active range of motion due to pain, in the left leg, Circulation is intact in all extremities. Pulses: are normal with no appreciated deficits, Perfusion: the extremity is normally perfused throughout, Sensation intact. Weight bearing: able to fully bear weight, Vital Signs: 14:18 BP 106 / 62; Pulse 81; Resp 18; Temp 98.3; Pulse Ox 99% ; Weight 98.88 kg; Height 5 ft. me1 11 in. ; Pain 4/10; 16:25 BP 104 / 53; Pulse 65; Resp 18; Pulse Ox 99% ; rg5 16:55 BP 129 / 65; Pulse 68; Resp 18; Pulse Ox 99% ; rg5 14:18 Body Mass Index 30.40 (98.88 kg, 180.34 cm) me1 14:18 Pain Scale: Adult me1 MDM: 14:16 Medical Screening Exam initiated sb4 15:07 Differential diagnosis: hip fracture, intertrochanteric fracture, femoral neck sb4 fracture, femoral shaft fracture, bursitis, arthritis, strain. 16:17 Independent interpretation of the following test(s) in the Emergency Department X-Ray: sb4 My interpretation is left hip xray images - no acute fracture of dislocation. 17:33 Data reviewed: vital signs, nurses notes, radiologic studies, and as a result, I will sb4 discharge patient. Historians other than the Patient: Spouse/Significant Other: . Counseling: I had a detailed discussion with the patient and/or guardian regarding the historical points, exam findings, and any diagnostic results supporting the discharge/admit diagnosis, radiology results, the need for outpatient follow up, for definitive care, a orthopedic surgeon, to return to the emergency department if symptoms worsen or persist or if there are any questions or concerns that arise at home. 01/03 14:28 Order name: Hip Left 2 View XRAY; Complete Time: 16:39 sb4 Administered Medications: No medications were administered Disposition Summary: 01/03/25 16:46 Discharge Ordered Notes: Location: Home sb4 Problem: new sb4 Symptoms: have improved sb4 Condition: Stable sb4 Diagnosis - Contusion of left hip sb4 Followup: sb4 - With: Private Physician - When: As needed - Reason: Recheck today's complaints, Re-evaluation by your physician Discharge Instructions: - Discharge Summary Sheet sb4 - Hip Sprain sb4 Forms: - Patient Portal Instructions sb4 - Leadership Thank You Letter sb4 Prescriptions: - meloxicam 7.5 mg Oral tablet - take 1 tablet ORAL route daily; 14 tablet; Refills: 0, Product Selection sb4 Permitted - methocarbamol 750 mg Oral tablet - take 1 tablet ORAL route 3 times per day; 15 tablet; Refills: 0, Product sb4 Selection Permitted Signatures: Dispatcher [employer] Rachana Turner PA-C PA-C sb4 Anita Silva, RN RN me1
[2025-01-03 20:55] VITALS: TEMP 98.3; O2SAT 99
[2025-01-03 20:57] VITALS: BP 129/65
== END 2025-01-03 17:03 | disposition home or self-care (01) ==
LOC: ER 14:08
DX: S70.02XA Contusion of left hip, initial encounter (principal); Z96.653 Presence of artificial knee joint, bilateral
CPT/HCPCS: 99284